=== PATIENT | male | born 1955 | race Hispanic/Latino ===

== ENCOUNTER 2018-11-13 06:01 | Day surgery (SDC) | payer BC ==
[~2018-11-13 06:01] MED LIST: ANCEF/STERILE WATER 2 GM/20 ML 2 GM/20 ML SYRINGE IV NR; NACL 0.9% 1000 ML 1,000 ML IV SCH
[2018-11-13 07:08] LABS: Basophils # (Auto) 0.1 K/mm3 (0.0-0.1); Eosinophils # (Auto) 0.3 K/mm3 (0.0-0.4); Hematocrit 35.5 % (35.5-45.6); Hemoglobin 12.1 gm/dl (11.8-15.2); Lymphocytes # (Auto) 0.7 K/mm3 (1.2-5.4); Lymphocytes % (Auto) 12.2 % (13.4-35.0); Mean Corpuscular HGB Conc 34 % (32-34); Mean Corpuscular Volume 97 fl (84-94); Monocytes # (Auto) 0.6 K/mm3 (0.0-0.8); Monocytes % (Auto) 11.5 % (0.0-7.3); Platelet Count 238 K/mm3 (140-440); Red Blood Count 3.67 M/mm3 (3.65-5.03); Red Cell Distribution Width 13.6 % (13.2-15.2)
[2018-11-13 07:21] LABS: BUN/Creatinine Ratio 12; Blood Urea Nitrogen 13 mg/dL (9-20); Calcium 9.7 mg/dL (8.4-10.2); Hemolysis Index 71
[2018-11-13 07:22] LABS: INR 0.99 (0.87-1.13)
[2018-11-13 07:23] LABS: Partial Thromboplastin Time 31.3 Sec. (24.2-36.6)
[2018-11-13] MEDS ORDERED: HEPARIN 10,000 UNITS/10 ML ONE (08:16)
[2018-11-13] MEDS ORDERED: HEPARIN/NS 5000 UNIT/500ML(CATH LAB) 1,000 ML IR ONE (08:16)
[2018-11-13] MEDS: SUBLIMAZE ONE ×5 (09:12→10:02)
[2018-11-13] MEDS: VERSED ONE ×3 (09:12→09:23)
[2018-11-13] MEDS: XYLOCAINE 2% INFILTRATI ONE ×3 (09:13→10:10)
[2018-11-13] MEDS ORDERED: VERSED ONE (09:45)
--- NOTE | 2018-11-13 10:26 | Short Stay Summary ---
Short Stay Documentation Date of service: 11/13/18 Narrative H&P: 63 year old male with CLI of the right lower extremity who presents for revascularization. - History Principal diagnosis: CLI H&P: obtained from office - Allergies and Medications Current Medications: Allergies No Known Allergies Allergy (Unverified 11/13/18 06:01) Home Medications Medication Instructions Recorded Confirmed Last Taken Type Albuterol Sulfate [Proair 90 mcg INHALATION QID PRN 11/13/18 11/13/18 Unknown History Respiclick] Amlodipine Besylate [Norvasc] 10 mg PO QDAY 11/13/18 11/13/18 11/13/18 04:30 History Aspirin [Adult Aspirin] 81 mg PO QDAY 11/13/18 11/13/18 11/13/18 04:30 History AtorvaSTATin [Lipitor] 10 mg PO QHS 11/13/18 11/13/18 11/12/18 History Carvedilol [Coreg] 12.5 mg PO BID 11/13/18 11/13/18 11/13/18 04:30 History Cholecalciferol (Vitamin D3) 10,000 unit PO QDAY 11/13/18 11/13/18 11/12/18 History [Vitamin D3 10,000 unit] Lisinopril [Zestril TAB] 40 mg PO QDAY 11/13/18 11/13/18 11/13/18 04:30 History RX: Cilostazol [Pletal] 50 mg PO BID 11/13/18 11/13/18 11/13/18 04:30 History RX: Fenofibrate 160 mg PO QHS 11/13/18 11/13/18 11/12/18 History RX: traMADol [Ultram 50 MG tab] 50 mg PO BID 11/13/18 11/13/18 11/12/18 History Umeclidinium Brm/Vilanterol Tr 1 unit INHALATION QDAY 11/13/18 11/13/18 11/13/18 04:30 History [Anoro Ellipta 62.5-25 Mcg INH] Active Medications Cefazolin Sodium (Ancef/Sterile Water 2 Gm/20 Ml) 2 gm in 20 mls @ 80 mls/hr IV PREOP NR; Protocol Stop: 11/13/18 23:59 Sodium Chloride (Nacl 0.9% 1000 Ml) 1,000 mls @ 42 mls/hr IV DIRECT DEENA Last Admin: 11/13/18 07:06 Dose: 42 mls/hr Documented by: - Physical exam General appearance: no acute distress Lungs: Normal air movement Gastrointestinal: normal Extremities: abnormal (nonpalpable pulses, right ankle large ulcer) - Brief post op/procedure progress note Date of procedure: 11/13/18 Pre-op diagnosis: CLI right lower extremity Post-op diagnosis: same Procedure: 1. Ultrasound guided access of the right common femoral artery 2. Angiography of the right lower extremity 3. Intravascular ultrasound of the right common iliac artery and external iliac artery 4. Angioplasty of the right common iliac artery with a 7 mm x 40 mm angioplasty balloon 5. Angioplasty of the right external iliac artery with a 7 mm x 40 mm angioplasty balloon 6. Angioplasty of the right common iliac artery with a 7 mm x 60 mm LUTONIX angioplasty balloon Anesthesia: local (w/ conscious sedation) Surgeon: MANI DAVILA Estimated blood loss: minimal Condition: stable - Hospital course Hospital course: Keep pressure dressing on until tomorrow AM. - Disposition Condition at discharge: Stable Disposition: [id number] TO HOME OR SELFCARE - Discharge Diagnoses (1) Critical ischemia of lower extremity Status: Acute Short Stay Discharge Plan Activity: advance as tolerated Weight Bearing Status: Weight Bear as Tolerated Diet: regular Wound: keep clean and dry, other (take off pressure dressing on 11/14/18 in AM) Follow up with: KAI GAMBOA MD [Primary Care Provider] - 7 Days
[2018-11-13] MEDS ORDERED: PLAVIX PO ONE (10:43)
[2018-11-13] MEDS ORDERED: PLAVIX ONE (10:44)
--- NOTE | 2018-11-13 10:48 | Operative Report ---
Operative Report Operative Report: EXAM: 1. Ultrasound-guided access of the right common femoral artery. 2. Angiography of the right lower extremity. 3. Intravascular ultrasound of the lower aorta, right common iliac artery, and external iliac artery. 4. Angioplasty of the right common iliac artery and external iliac artery with a 7 mm x 40 mm angioplasty balloon. 5. Angioplasty of the right common iliac artery and external iliac artery with a 7 mm x 60 mm LUTONIX angioplasty balloon. DATE: 11/13/18 SEARCH ENGINE OPTIMIZATION SPECIALIST: MANI DAVILA MD INDICATION: Critical limb ischemia of the right lower extremity MEDICATIONS: Please see nursing report for full details. DEVICES: 7 mm x 40 mm angioplasty balloon Intravascular ultrasound 7 mm x 60 mm LUTONIX DCB CONTRAST: Please see lab support tech report for full details PROCEDURE: The risks, benefits, and alternatives were discussed with the patient; written informed consent was obtained. The patient was brought to the Director [employer] and prepped and draped in a sterile fashion. The right common femoral artery was evaluated with ultrasound and demonstrated a patent endarterectomy of the right common femoral artery. Right common femoral artery was accessed under direct ultrasound guidance with a 21- gauge micropuncture needle. 0.018 inch wire was passed into the IVC. Transitional dilator could not easily passed over the wire and therefore the inner portion of the transitional dilator was passed over the wire. Wire was exchanged for V 18. Transitional dilator was reassembled and passed over the V18. Wire was removed and a Amplatz wire was passed into the right iliac system. The Amplatz where did not easily passed into the aorta and required significant manipulation before it would pass into the right common iliac artery and then passed into the aorta. After passed into the aorta, the transitional dilator was exchanged for 5 Yi sheath. Digital subtraction angiography was performed demonstrating an appropriate puncture, above the bifurcation and below the inferior epigastric artery. The right profunda femoral artery was patent, and the right common femoral artery endarterectomy site was patent. The right external iliac artery had a stent within it and had a 40% narrowing about the stent and a 30% narrowing below the stent. The stent itself had a 20% narrowing within it. The common iliac artery had a 40% narrowing in the lower portion of the artery and a ostium which was narrowed but difficult to visualize. Intravascular ultrasound was used which confirmed the narrowing in the external iliac artery, and lower common iliac artery. The ostium of the right iliac artery had 60% narrowing. The lower aorta was patent. Serial narrowings were multifocal and noncontinuous. After this was confirmed with intravascular ultrasound, 7 mm angioplasty balloon was used to perform angioplasty of the right common iliac artery and external iliac artery. Digital subtraction angiography was performed demonstrating less than 10-20% residual narrowing. I then decided to use a drug-coated balloon on the right common iliac artery and right external iliac artery. After an gioplasty, digital subtraction angiography was performed demonstrating less than 10-20% residual narrowing of the right common iliac artery and external iliac artery. Digital subtraction angiography was then performed to the sheath documenting the right proximal superficial femoral artery occlusion, right distal superficial femoral artery occlusion, and right above the knee popliteal and mid popliteal arterial occlusion. The mid to distal superficial femoral artery reconstituted from collaterals. The below the knee popliteal artery and proximal anterior tibial artery, tibioperoneal trunk, proximal peroneal artery, and proximal posterior tibial artery runoff reconstituted from collaterals. All wires, catheters, and she's removed. Pressure was held until hemostasis was achieved. Pressure dressing applied. Patient tolerated the procedure well. No immediate post procedure complication. FINDINGS: Please see procedure note above. IMPRESSION: 1. Successful angioplasty of the right common iliac artery. 2. Successful angioplasty of the right external iliac artery. 3. Successful ultrasound-guided access of the right common femoral artery.
[2018-11-13 14:32] VITALS: BP 151/76
== END 2018-11-13 14:40 | disposition home or self-care (01) ==
LOC: CATHLABREC 06:01
PROVIDERS: ATTEND Radiology Diagnostic Radiology
DX: I70.291 Other atherosclerosis of native arteries of extremities, right leg (principal); I10 Essential (primary) hypertension; M10.9 Gout, unspecified; G47.30 Sleep apnea, unspecified; M19.90 Unspecified osteoarthritis, unspecified site; E78.00 Pure hypercholesterolemia, unspecified; J44.9 Chronic obstructive pulmonary disease, unspecified; Z79.899 Other long term (current) drug therapy; Z79.01 Long term (current) use of anticoagulants; Z96.642 Presence of left artificial hip joint; Z87.891 Personal history of nicotine dependence; Z98.890 Other specified postprocedural states
CPT/HCPCS: 36415; 37220; 37222; 37252; 75710; 76937; 80048; 85025; 85610; 85730; 99156; 99157; C1725; C1751; C1753; C1769; C2623; J1644; J2250; J3010; J7030; Q9967